=== PATIENT | female | born 1945 ===

== ENCOUNTER 2020-10-11 06:01 | Emergency (ER) | payer MEDICARE, OTHER ==
[2020-10-11] MEDS ORDERED: Ondansetron 4 MG Tab.DIS PO ONE (06:21)
[2020-10-11] MEDS ORDERED: Meclizine 25 MG Tab PO ONE (06:21)
--- NOTE | 2020-10-11 08:33 | EDM.PDOC ---
ED HPI GENERAL MEDICAL PROBLEM - General Chief Complaint: General Stated Complaint: nausea, dizziness Time Seen by Provider: 10/11/20 06:18 Source of Information: Reports: Patient History Limitations: Reports: No Limitations - History of Present Illness INITIAL COMMENTS - FREE TEXT/NARRATIVE: Patient comes to ER with complaint of dizziness/vertigo/nausea with small episodes of emesis this morning. Started overnight. Same symptoms several years ago when she was diagnosed with labyrinthitis/vertigo. She cannot recall the PT exercises she performed back then that helped her. Also has had some discomfort in RLQ of abdomen. No bowel changes. No fevers/chills. No recent injuries/falls. Denies headache/neuro changes. No chest pain. Head rotation makes dizziness significantly worse. It is noted that nursing note has RUQ pain listed in triage note, but now patient points to RLQ when asked where her discomfort is located. 10/09. History of appendectomy/hysterectomy Abdominal Pain Score (Numeric/FACES): 3 - Related Data Allergies Allergy/AdvReac Type Severity Reaction Status Date / Time Fish Containing Products Allergy Cannot Verified 10/11/20 06:06 Remember Home Meds: Home Meds Meclizine [Antivert] 25 mg PO Q6H PRN #40 tab 10/11/20 [Rx] Meloxicam, Submicronized [Meloxicam] 10 mg PO BEDTIME 10/11/20 [History] Pantoprazole Sodium [Protonix] 1 tab PO DAILY 10/11/20 [History] Sucralfate [Carafate] 1 gm PO TID 10/11/20 [History] Past Medical History HEENT History: Reports: Hard of Hearing, Impaired Vision Gastrointestinal History: Reports: PUD Musculoskeletal History: Reports: Arthritis, Neck Pain, Chronic, Osteoarthritis Neurological History: Reports: Vertigo Social & Family History - Tobacco Use Tobacco Use Status *Q: Never Tobacco User ED ROS GENERAL - Review of Systems Review Of Systems: See Below Constitutional: Reports: No Symptoms HEENT: Reports: Vertigo. Denies: Ear Pain, Vision Change Respiratory: Reports: No Symptoms Cardiovascular: Reports: No Symptoms Endocrine: Reports: No Symptoms GI/Abdominal: Reports: Nausea, Vomiting, Other (10/09 discomfort RLQ). Denies: Constipation, Diarrhea, Difficulty Swallowing, Distension, Hematemesis, Hematochezia : Reports: No Symptoms Musculoskeletal: Reports: Other (chronic diffuse arthritis/no acute changes from baseline) Neurological: Reports: Dizziness, Difficulty Walking (head rotation makes dizziness worse). Denies: Confusion, Headache, Numbness, Paresthesia, Seizure, Syncope, Tingling, Trouble Speaking, Weakness, Change in Speech Psychiatric: Reports: No Symptoms ED EXAM, GENERAL - Physical Exam Exam: See Below Exam Limited By: No Limitations General Appearance: Alert, WD/WN, No Apparent Distress Eye Exam: Bilateral Eye: EOMI, PERRL, Other (No observed nystagmus with head rotation) Ears: Normal External Exam, Normal Canal, Normal TMs, Other (bilateral hearing aids) Nose: No: Nasal Deformity, Nasal Swelling, Nasal Drainage Throat/Mouth: Normal Lips, Normal Voice, No Airway Compromise Head: Atraumatic, Normocephalic Neck: Normal Inspection, Supple, Non-Tender, Full Range of Motion Respiratory/Chest: No Respiratory Distress, Lungs Clear, Normal Breath Sounds, No Accessory Muscle Use, Chest Non-Tender Cardiovascular: Normal Peripheral Pulses, Regular Rate, Rhythm, No Edema, No Murmur GI/Abdominal: Normal Bowel Sounds, Soft, No Distention, Other (mild tenderness with palpation RLQ) (Female) Exam: Deferred Rectal (Female) Exam: Deferred Back Exam: No: CVA Tenderness (L), CVA Tenderness (R), Muscle Spasm, Paraspinal Tenderness, Vertebral Tenderness Extremities: Normal Range of Motion, Non-Tender, No Pedal Edema, Normal Capillary Refill Neurological: Alert, Oriented, Normal Cognition, Normal Gait, No Motor/Sensory Deficits Psychiatric: Normal Affect, Normal Mood Skin Exam: Warm, Dry, Intact, Normal Color #1 Interpretation EKG Date: 10/11/20 Time: 06:43 Rhythm: NSR Rate (Beats/Min): 60 [place]: Normal P-Wave: Present QRS: Normal ST-T: Normal QT: Normal Comparison: NA - No Prior EKG Course - Vital Signs Last Recorded V/S: Last Vital Signs Temp 36.0 C L 10/11/20 06:06 Pulse 62 10/11/20 06:34 Resp 16 10/11/20 08:00 BP 154/69 H 10/11/20 08:00 Pulse Ox 98 10/11/20 08:00 - Orders/Labs/Meds Orders: Active Orders 24 hr Category Date Time Status EKG Documentation Completion [RC] ASDIRECTED Care 10/11/20 06:20 Ordered Abdomen Series w Chest 1V [CR] Stat Exams 10/11/20 06:20 Ordered UA W/MICROSCOPIC [URIN] Stat Lab 10/11/20 06:19 Ordered EKG 12 Lead [EK] Stat Ther 10/11/20 06:19 Ordered Labs: Laboratory Tests 10/11/20 10/11/20 10/11/20 Range/Units 06:30 06:30 06:30 WBC 5.9 (4.0-10.2) K/uL RBC 3.38 L (3.77-5.09) M/uL Hgb 10.6 L (11.7-15.5) g/dL Hct 32.6 L (34.0-46.0) % MCV 96.4 (84.0-98.0) fL MCH 31.4 (28.2-33.3) pg MCHC 32.5 (31.7-36.0) g/dL RDW 13.5 (11.2-14.1) % Plt Count 253 (150-350) K/uL Neut % (Auto) 64.5 (45.0-80.0) % Lymph % (Auto) 23.2 (10.0-50.0) % [place] % (Auto) 7.0 (2.0-14.0) % Eos % (Auto) 4.4 (0.0-5.0) % Baso % (Auto) 0.9 (0.0-2.0) % Neut # (Auto) 3.78 (1.40-7.00) K/uL Lymph # (Auto) 1.36 (0.50-3.50) K/uL [place] # (Auto) 0.41 (0.00-1.00) K/uL Eos # (Auto) 0.26 (0.00-0.50) K/uL Baso # (Auto) 0.05 (0.00-0.20) K/uL Sodium 142 (136-145) mmol/L Potassium 4.3 (3.5-5.1) mmol/L Chloride 110 H (98-107) mmol/L Carbon Dioxide 23.6 (21.0-32.0) mmol/L BUN 25 H (7-18) mg/dL Creatinine 1.01 (0.51-1.17) mg/dL Est Cr Clr Drug Dosing 43.31 mL/min Estimated GFR (MDRD) 53 mL/min Glucose 99 (70-99) mg/dL Lactic Acid 0.7 (0.4-2.0) mmol/L Calcium 9.3 (8.5-10.1) mg/dL Magnesium 2.3 (1.8-2.4) mg/dL Total Bilirubin 0.3 (0.2-1.0) mg/dL AST 23 (15-37) U/L ALT 37 (12-78) U/L Alkaline Phosphatase 79 (46-116) IU/L Troponin I 0.003 (0.000-0.056) ng/mL Total Protein 6.0 L (6.4-8.2) g/dL Albumin 3.5 (3.4-5.0) g/dL - Radiology Interpretation Free Text/Narrative:: Abdomen/chest showed increased stool in colon but otherwise no acute changes. - Re-Assessments/Exams Free Text/Narrative Re-Assessment/Exam: 10/11/20 08:33 PT consult requested along with labs/EKG/Xray. 10/11/20 09:02 Labs overall unremarkable. Large amount stool noted on xray may be cause of patient's discomfort in RLQ. WBC normal. No guarding/rebound. Patient felt dizziness/vertigo significantly improved after PT worked with her. Plan at this time is to let her go home. She is to drink Mag Citrate to help promote bowel movement. She is to continue performing PT exercises for vertigo. To return if symptoms return/worsen for recheck/further testing as needed. Departure - Departure Time of Disposition: 08:34 Disposition: Home, Self-Care 01 Condition: Good Clinical Impression: Vertigo Constipation Qualifiers: Constipation type: unspecified constipation type Qualified Code(s): K59.00 - Constipation, unspecified - Discharge Information *PRESCRIPTION DRUG MONITORING PROGRAM REVIEWED*: Not Applicable *COPY OF PRESCRIPTION DRUG MONITORING REPORT IN PATIENT ARAM: Not Applicable Instructions: Vertigo, Constipation, Adult, [id number] Referrals: Karena Escobedo PA-C [Primary Care Provider] - Additional Instructions: Perform exercises as recommended by PT. Take Meclizine 25mg every 6 hours to help with dizziness. You appeared to have a reasonably large amount of stool in your colon on the xray. This may be why you have discomfort in your abdomen. Recommend that you drink 1 bottle of Magnesium Citrate today to get that to move through. You will likely experience some cramping as it works its way through so take some Tylenol. If you have redeveloping issues/worsening dizziness get rechecked! Call if you have questions. Sepsis Event Note (ED) - Evaluation Sepsis Screening Result: No Definite Risk - Focused Exam Vital Signs: Vital Signs Temp Pulse Resp BP Pulse Ox 10/11/20 08:00 16 154/69 H 98 10/11/20 06:34 62 150/67 H 10/11/20 06:20 60 135/81 10/11/20 06:06 36.0 C L 60 19 160/71 H 100 - My Orders Last 24 Hours: My Active Orders 10/11/20 06:19 UA W/MICROSCOPIC [URIN] Stat EKG 12 Lead [EK] Stat 10/11/20 06:20 EKG Documentation Completion [RC] ASDIRECTED Abdomen Series w Chest 1V [CR] Stat - Assessment/Plan Last 24 Hours: My Active Orders 10/11/20 06:19 UA W/MICROSCOPIC [URIN] Stat EKG 12 Lead [EK] Stat 10/11/20 06:20 EKG Documentation Completion [RC] ASDIRECTED Abdomen Series w Chest 1V [CR] Stat
[2020-10-11] MEDS ORDERED: Magnesium Citrate Solution 296 ML Bottle PO ONE (08:40)
[2020-10-11] MEDS ORDERED: Meclizine 25 MG Tab PO PRN (08:40)
== END 2020-10-11 08:55 | disposition home or self-care (01) ==
LOC: LL.ED 06:01
DX: R42 Dizziness and giddiness (principal); K59.00 Constipation, unspecified; M19.90 Unspecified osteoarthritis, unspecified site; Z91.013 Allergy to seafood; Z79.899 Other long term (current) drug therapy
CPT/HCPCS: 36415; 74022; 80053; 83605; 83735; 84484; 85025; 93005; 99283; 99284-25; A9270-GY

== ENCOUNTER 2020-10-15 07:13 | Emergency (ER) | payer OTHER ==
[2020-10-15] MEDS ORDERED: methylPREDNISolone Acetate 80 MG/ML SDV IM ONE (07:37)
--- NOTE | 2020-10-15 07:37 | EDM.PDOC ---
ED HPI GENERAL MEDICAL PROBLEM - General Chief Complaint: Neck Problem Stated Complaint: Neck pain Time Seen by Provider: 10/15/20 07:20 Source of Information: Reports: Patient, Old Records ([facility] EMR. No paper hospital chart available.) History Limitations: Reports: Other (Severe presbycusis with the patient not having her hearing aids today) - History of Present Illness INITIAL COMMENTS - FREE TEXT/NARRATIVE: Patient was brought to the emergency room via private automobile by her brother for evaluation of exacerbation of her chronic low neck pain during the last couple of days with patient not taking her morning medications. Her neck pain is especially bad this morning after she woke up, and she complains of 8/10 sharp neck pain with movement with no history of fall, injury, etc. She did take 1000 mg of Tylenol at 5 PM yesterday with no other topical treatments, etc. The patient is also still having some vertigo type symptoms and has not taken her meclizine yet this morning with emergency room evaluation in this facility for this vertigo on 10/11/2020. The patient denies any chest pain/pressure, heart flutter, orthostasis, orthopnea, diaphoresis, paresthesias, recent decreased exercise tolerance, or any other anginal-type symptoms. No recent history of abdominal pain, heartburn, nausea, diarrhea, melena, gross hematochezia, or any food intolerance, including fatty foods, etc.. She denies any gross hematuria, colic, or other UTI symptoms. The patient also denies any recent fever, cough, wheezing, dyspnea, etc.. No history of recent headaches, visual changes, diplopia, change in mental status, or other change in neurological status. Onset: Gradual, Other (As above) Duration: Constant, Getting Worse Location: Reports: Neck. Denies: Head, Face, Chest, Abdomen, Back, Pelvis, Upper Extremity, Left, Upper Extremity, Right, Radiates to Quality: Reports: Same as Previous Episode, Sharp Severity: Severe Improves with: Reports: Rest Worsens with: Reports: Movement Context: Reports: Other (As above). Denies: Sick Contact, Trauma Associated Symptoms: Reports: No Other Symptoms. Denies: Confusion, Chest Pain, Cough, Diaphoresis, Fever/Chills, Headaches, Loss of Appetite, Malaise, Nausea/Vomiting, Rash, Seizure, Shortness of Breath, Syncope, Weakness Treatments JAVA SOFTWARE ARCHITECT: Reports: Acetaminophen, Other Medication(s), Other (see below) Other Treatments JAVA SOFTWARE ARCHITECT: Meclizine however not this morning Neck Pain Score (Numeric/FACES): 8 - Related Data Allergies Allergy/AdvReac Type Severity Reaction Status Date / Time Fish Containing Products Allergy Cannot Verified 10/15/20 07:14 Remember Home Meds: Home Meds Meclizine [Antivert] 25 mg PO Q6H PRN #40 tab 10/11/20 [Rx] Meloxicam, Submicronized [Meloxicam] 10 mg PO BEDTIME 10/11/20 [History] Pantoprazole Sodium [Protonix] 1 tab PO DAILY 10/11/20 [History] Sucralfate [Carafate] 1 gm PO TID 10/11/20 [History] Past Medical History HEENT History: Reports: Hard of Hearing, Impaired Vision, Other (See Below) Other HEENT History: Patient wears glasses. She has severe bilateral presbycusis with hearing aid therapy currently. Gastrointestinal History: Reports: Chronic Constipation, GERD, PUD MUSEUM INFORMATICS SPECIALIST History: Reports: Dysfunctional Uterine Bleeding, . Denies: Fibroids : 2 Para: 2 LMP (Approximate): Other (See Below) Other MUSEUM INFORMATICS SPECIALIST History: Surgical menopause in 1979 secondary to dysfunctional uterine bleeding from complications from her IUD. Full term without complications during pregnancies or deliveries. Musculoskeletal History: Reports: Arthritis, Back Pain, Chronic, Fracture, Neck Pain, Chronic, Osteoarthritis, Other (See Below) Other Musculoskeletal History: Coccyx fracture 1968. Left foot fracture. Neurological History: Reports: Vertigo Hematologic History: Reports: Anemia - Past Surgical History HEENT Surgical History: Reports: Oral Surgery, Other (See Below) Other HEENT Surgeries/Procedures: Complete teeth extraction with patient having upper and lower dentures. GI Surgical History: Reports: Appendectomy, Other (See Below) Other GI Surgeries/Procedures: Incidental appendectomy in 1979 concomitant with complete hysterectomy as below. Female Surgical History: Reports: Hysterectomy, Salpingo-Oophorectomy, Other (See Below) Other Female Surgeries/Procedures: Complete hysterectomy with bilateral salpingo-oophorectomy in 1979 secondary to dysfunctional uterine bleeding from IUD as above. - History Comment History Comment: History limited secondary to patient's severe presbycusis with no hearing therapy today. Social & Family History - Tobacco Use Tobacco Use Status *Q: Former Tobacco User Tobacco Use Within Last Twelve Months: No Years of Tobacco use: 40 Packs/Tins Daily: 0.4 Packs/Tins Daily Comment: Stop smoking at age 72. 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 ED EXAM, GENERAL - Physical Exam Exam: See Below Exam Limited By: No Limitations General Appearance: Alert, WD/WN, No Apparent Distress Eye Exam: Bilateral Eye: EOMI, Normal Inspection (The patient is wearing glasses with some vertigo with head movement but no nystagmus.), PERRL Ears: Normal External Exam, Normal Canal, Normal TMs, Hearing Loss (Severe bilateral presbycusis with the patient not having her hearing aids today) Nose: Normal Inspection, Normal Mucosa, No Blood Throat/Mouth: Normal Inspection, Normal Lips, Normal Gums, Normal Oropharynx, Normal Voice, No Airway Compromise. No: Normal Teeth (Complete dentures uppers and lowers), Dysphagia, Perioral Cyanosis Head: Atraumatic, Normocephalic. No: Facial Swelling, Facial Tenderness, Sinus Tenderness Neck: Supple, Full Range of Motion, Tender Midline (Lower C-spine region mild to moderate in nature with no crepitation, deformity, etc. Mild aggravation with movement with symptoms similar to long history of chronic neck pain by her history. No significant muscle spasms). No: Non-Tender, Lymphadenopathy (L), Lymphadenopathy (R), Tender Lateral, Thyromegaly Respiratory/Chest: No Respiratory Distress, Lungs Clear, Normal Breath Sounds, No Accessory Muscle Use, Chest Non-Tender. No: Pleural Rub, Retractions Cardiovascular: Normal Peripheral Pulses, Regular Rate, Rhythm, No Edema, No Gallop, No JVD, No Murmur, No Rub. No: Gallop/S3, Gallop/S4, Friction Rub Peripheral Pulses: 2+: Radial (L), Radial (R) GI/Abdominal: Normal Bowel Sounds, Soft, Non-Tender, No Organomegaly, No Distention, No Abnormal Bruit, No Mass. No: Guarding (Female) Exam: Deferred Rectal (Female) Exam: Deferred Back Exam: Normal Inspection, Full Range of Motion. No: CVA Tenderness (L), CVA Tenderness (R), Muscle Spasm Extremities: Normal Inspection, Normal Range of Motion, Non-Tender, No Pedal Edema, Normal Capillary Refill. No: Dhaval's Sign Neurological: Alert, Oriented, CN II-XII Intact, Normal Cognition, Normal Gait, No Motor/Sensory Deficits Psychiatric: Normal Affect, Normal Mood Skin Exam: Warm, Dry, Intact, Normal Color, No Rash. No: Diaphoretic, Wound/Incision Lymphatic: No Adenopathy Course - Vital Signs Last Recorded V/S: Last Vital Signs Temp 36.6 C 10/15/20 07:22 Pulse 70 10/15/20 07:48 Resp 17 10/15/20 07:48 BP 140/75 10/15/20 07:48 Pulse Ox 100 10/15/20 07:48 Vital Signs - 24 hr 10/15/20 10/15/20 10/15/20 07:22 07:28 07:48 Temperature [ 36.6 C Temporal] Pulse, 65 64 70 Peripheral [ Pulse Oximetry] Respiratory 18 16 17 Rate Blood Pressure 134/67 140/64 140/75 [Right Upper Arm] O2 Sat by Pulse 100 98 100 Oximetry - Orders/Labs/Meds Orders: Active Orders 24 hr Category Date Time Status Obtain Past Medical Record [OM.PC] Routine Oth 10/15/20 07:37 Active Labs: None Meds: Medications Discontinued Medications Generic Name Dose Route Start Last Admin Trade Name Heidy PRN Reason Stop Dose Admin Methylprednisolone Acetate 80 mg 10/15/20 07:37 10/15/20 07:42 Methylprednisolone Acetate 80 Mg/Ml Sdv IM 10/15/20 07:38 80 mg ONETIME ONE Administration - Radiology Interpretation Free Text/Narrative:: None Departure - Departure Time of Disposition: 08:00 Disposition: Home, Self-Care 01 Condition: Good Clinical Impression: Vertigo, Peptic reflux disease Osteoarthritis Qualifiers: Osteoarthritis location: multiple joints Osteoarthritis type: primary Qualified Code(s): M89.49 - Other hypertrophic osteoarthropathy, multiple sites - Discharge Information *PRESCRIPTION DRUG MONITORING PROGRAM REVIEWED*: Not Applicable *COPY OF PRESCRIPTION DRUG MONITORING REPORT IN PATIENT ARAM: Not Applicable Instructions: Vertigo, [id number], How to Perform the Marko Maneuver, Cervical Sprain, [id number] Referrals: Karena Escobedo PA-C [Primary Care Provider] - Forms: ED Department Discharge Additional Instructions: 1. Follow up with your regular provider in 10-14 days as needed, if symptoms persist. Bring these discharge instructions with you to that visit. 2. Tylenol 650 mg by mouth every 4 hours when necessary as directed. 3. BenGay or equivalent, heating pad, and/or ice packs as directed. 4. Continue dizziness/vertigo maneuvers as previously directed and as per information provided 5. Sedation precautions with meclizine as discussed 6. Consider referral to physical therapy for both treatment of your neck pain and vertigo by your regular provider at the follow-up visit depending on your symptoms at that time 7. Immediately after this visit verify that your cellular telephone's voicemail has been activated and is empty. Also verify that your home telephone's answering machine is operating properly and has space to receive messages. Note that it is sometimes necessary for us to be able to contact you at a later date to discuss your medical care. 8. Please remember that we are ALWAYS here for you and want to answer any questions you may have. Feel free to call the hospital any time and we call you back LV. Sepsis Event Note (ED) - Evaluation Sepsis Screening Result: No Definite Risk - Focused Exam Vital Signs: Vital Signs Temp Pulse Resp BP Pulse Ox 10/15/20 07:48 70 17 140/75 100 10/15/20 07:28 64 16 140/64 98 10/15/20 07:22 36.6 C 65 18 134/67 100 - Problem List & Annotations (1) Osteoarthritis SNOMED Code(s): 987856684 Code(s): M19.90 - UNSPECIFIED OSTEOARTHRITIS, UNSPECIFIED SITE Status: Chronic Priority: High Annotation/Comment:: Exacerbation of her chronic neck pain with no history of injury, etc. as above. Various therapeutic options were discussed with the patient. She will continue to use her meloxicam, including later this morning, with no IM Toradol for now. IM Depo-Medrol was given, however, with this also beneficial for her recent exacerbation of her chronic vertigo. Close follow-up by regular provider as per discharge instructions. Consider physical therapy, baseline C-spine x-rays, and/or CT versus MRI of the C-spine depending on her clinical course. Compliance with topical therapy was strongly encouraged. Qualifiers: Osteoarthritis location: multiple joints Osteoarthritis type: primary Qualified Code(s): M89.49 - Other hypertrophic osteoarthropathy, multiple sites (2) Vertigo SNOMED Code(s): 724733745 Code(s): R42 - DIZZINESS AND GIDDINESS Status: Acute Onset Date: ~10/11/20 Annotation/Comment:: The patient was once again given information concerning the Marko maneuver, which was performed by the physical therapist at time of emergency room evaluation on 10/11/2020. She has apparently also been performing these exercises at home. Continue symptomatic relief with meclizine with sedation precautions given. IM Depo-Medrol given as above. Close follow- up by regular provider as per discharge instructions. (3) Peptic reflux disease SNOMED Code(s): 384265018 Code(s): K21.9 - GASTRO-ESOPHAGEAL REFLUX DISEASE WITHOUT ESOPHAGITIS Status: Chronic Priority: Medium Annotation/Comment:: Stable by history with current medical regimen. - Problem List Review Problem List Initiated/Reviewed/Updated: Yes - My Orders Last 24 Hours: My Active Orders 10/15/20 07:37 Obtain Past Medical Record [OM.PC] Routine - Assessment/Plan Last 24 Hours: My Active Orders 10/15/20 07:37 Obtain Past Medical Record [OM.PC] Routine Assessment:: As above Plan: As above. Extensive precautions were given to the patient, who is in agreement with the treatment plan. See Patient Instructions for further treatment and plan.
[2020-10-15 07:49] VITALS: BP 140/75; PULSE 70
== END 2020-10-15 08:00 | disposition home or self-care (01) ==
LOC: LL.ED 07:13
DX: R42 Dizziness and giddiness (principal); K21.9 Gastro-esophageal reflux disease without esophagitis; M89.49 Other hypertrophic osteoarthropathy, multiple sites; Z91.013 Allergy to seafood; Z79.899 Other long term (current) drug therapy; M19.90 Unspecified osteoarthritis, unspecified site; Z87.891 Personal history of nicotine dependence
CPT/HCPCS: 96372; 99283; 99284; J1040

== ENCOUNTER 2025-01-28 10:57 | Emergency (ER) | payer MEDICARE, OTHER | END 2025-01-28 12:00 | disposition home or self-care (01) | LOC: LL.ED 10:57 | DX: S46.912A Strain of unspecified muscle, fascia and tendon at shoulder and upper arm level, left arm, initial encounter (principal); I10 Essential (primary) hypertension; E78.00 Pure hypercholesterolemia, unspecified; E66.9 Obesity, unspecified; K21.9 Gastro-esophageal reflux disease without esophagitis; Z87.891 Personal history of nicotine dependence; Z79.899 Other long term (current) drug therapy; Z91.013 Allergy to seafood; X58.XXXA Exposure to other specified factors, initial encounter; Z68.28 Body mass index [BMI] 28.0-28.9, adult | CPT/HCPCS: 71046; 99283; 99284 ==